=== PATIENT | female | born 1950 | race Caucasian/White ===

== ENCOUNTER 2017-02-22 18:37 | Emergency (ER) | payer MEDICARE, OTHER ==
[2017-02-22] MEDS ORDERED: cloNIDine 0.1 MG Tab PO ONE (19:13)
--- NOTE | 2017-02-22 19:17 | EDM.PDOC ---
ED HPI GENERAL MEDICAL PROBLEM - General Chief Complaint: Diabetic Complaint Stated Complaint: [facility] Time Seen by Provider: 02/22/17 19:14 Source of Information: Reports: Patient, Family History Limitations: Reports: No Limitations - History of Present Illness INITIAL COMMENTS - FREE TEXT/NARRATIVE: pt states remembering sitting in a chair then found herself sitting on the floor. spouse states pt is DM and found her sitting on floor and took BS found at 35 unable to get her up called EMS, EMS arrived gave glucagon en route improved. pt denies head/neck pain denies pain anywhere, no CP/SOB. Middle Parietal Head Pain Score (Numeric/FACES): 4 - Related Data Allergies Allergy/AdvReac Type Severity Reaction Status Date / Time fentanyl Allergy Hallucinati Verified 02/22/17 19:11 ons Sulfa (Sulfonamide Allergy Cannot Verified 02/22/17 19:11 Antibiotics) Remember Home Meds: Home Meds Alendronate Sodium [Alendronate] 02/22/17 [History] Budesonide [Pulmicort] 02/22/17 [History] Cilostazol [Cilostazol] 02/22/17 [History] Glucagon,Human Recombinant [Glucagon Emergency Kit] 02/22/17 [History] Insulin Aspart [NovoLOG] 02/22/17 [History] Levothyroxine Sodium [Synthroid] 200 mcg PO ACBREAKFAST 02/22/17 [History] Lisinopril [Lisinopril] 5 mg PO 02/22/17 [History] Methotrexate Sodium [Methotrexate] 2.5 mg PO 02/22/17 [History] Metoprolol Succinate [Toprol Xl] 100 mg PO 02/22/17 [History] Montelukast Sodium 10 mg PO DAILY 02/22/17 [History] Nitroglycerin [Nitroglycerin] 0.4 mg PO PRN 02/22/17 [History] Omeprazole [Omeprazole] 20 mg PO DAILY 02/22/17 [History] Prasugrel HCl [Effient] 10 mg PO 02/22/17 [History] atorvaSTATin Calcium [Atorvastatin Calcium] 80 mg PO DAILY 02/22/17 [History] Past Medical History Cardiovascular History: Reports: Heart Failure Other Cardiovascular History: CHF; 2 stents Respiratory History: Reports: Asthma Endocrine/Metabolic History: Reports: Diabetes, Type I - Past Surgical History Other Endocrine Surgeries/Procedures: Continuous Insilin pump Social & Family History - Tobacco Use Smoking Status *Q: Never Smoker Second Hand Smoke Exposure: No - Caffeine Use Caffeine Use: Reports: Coffee, Soda, Tea - Recreational Drug Use Recreational Drug Use: No ED ROS GENERAL - Review of Systems Review Of Systems: ROS reveals no pertinent complaints other than HPI. ED EXAM GENERAL NO PERIP PULSE - Physical Exam Exam: See Below Exam Limited By: No Limitations General Appearance: Alert, WD/WN, No Apparent Distress Eye Exam: Bilateral Eye: PERRL (pupils ER @ 4mm) Ears: Hearing Grossly Normal Throat/Mouth: Normal Voice, No Airway Compromise Head: Atraumatic Neck: Non-Tender, Full Range of Motion Respiratory/Chest: No Respiratory Distress Cardiovascular: Regular Rate, Rhythm GI/Abdominal: Soft, Non-Tender Neurological: Alert, Oriented, Normal Cognition, No Motor/Sensory Deficits Psychiatric: Normal Affect, Normal Mood Skin Exam: Warm, Dry, Normal Color Lymphatic: No Adenopathy Course - Vital Signs Last Recorded V/S: Last Vital Signs Temp 35.9 C 02/22/17 18:40 Pulse 82 02/22/17 18:40 Resp 18 02/22/17 18:40 BP 177/80 H 02/22/17 19:17 Pulse Ox 100 02/22/17 18:40 - Orders/Labs/Meds Orders: Active Orders 24 hr Category Date Time Status EKG 12 Lead [EKG Documentation Completion] [RC] STAT Care 02/22/17 19:39 Active Labs: Laboratory Tests 02/22/17 02/22/17 02/22/17 Range/Units 18:43 18:54 18:54 WBC 13.2 H (5.0-10.0) 10^3/uL RBC 4.18 L (4.2-5.4) 10^6/uL Hgb 14.7 (12.0-16.0) g/dL Hct 43.1 (37.0-47.0) % MCV 103.1 H (80-100) fL MCH 35.2 H (27.0-34.0) pg MCHC 34.1 (33.0-35.0) g/dL Plt Count 321 (150-450) 10^3/uL Neut % (Auto) 83.3 H (42.2-75.2) % Lymph % (Auto) 10.3 L (20.5-50.1) % [place] % (Auto) 4.9 (2-8) % Eos % (Auto) 1.3 (1.0-3.0) % Baso % (Auto) 0.2 (0.0-1.0) % Sodium 138 (135-145) mmol/L Potassium 4.5 (3.6-5.0) mmol/L Chloride 98 L (101-111) mmol/L Carbon Dioxide 29.0 (21.0-31.0) mmol/L Anion Gap 15.5 BUN 21 H (7-18) mg/dL Creatinine 0.8 (0.6-1.3) mg/dL Est Cr Clr Drug Dosing 70.38 mL/min Estimated GFR (MDRD) > 60 BUN/Creatinine Ratio 26.25 Glucose 104 (74-105) mg/dL POC Glucose 66 L (70-105) mg/dl Calcium 9.0 (8.4-10.2) mg/dl Total Bilirubin 1.0 (0.2-1.0) mg/dL AST 26 (10-42) IU/L ALT 23 (10-60) IU/L Alkaline Phosphatase 94 (42-121) IU/L Troponin I 0.03 H* (0.00-0.02) ng/ml Total Protein 7.3 (6.7-8.2) g/dl Albumin 4.2 (3.2-5.5) g/dl Globulin 3.1 Albumin/Globulin Ratio 1.35 Meds: Medications Discontinued Medications Generic Name Dose Route Start Last Admin Trade Name Freq PRN Reason Stop Dose Admin Clonidine HCl 0.1 mg 02/22/17 19:13 02/22/17 19:17 Catapres PO 02/22/17 19:14 0.1 mg ONETIME ONE Administration - Re-Assessments/Exams Free Text/Narrative Re-Assessment/Exam: 02/22/17 20:46 results discussed with pt who states 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 case discussed with Dr Arun garcia who concurred GF transf. Case discussed with Dr Newton @ who kidly accepted pt. Departure - Departure Time of Disposition: 20:48 Disposition: DC/Tfer to Acute Hospital 02 Condition: Good Clinical Impression: Syncope and collapse, Hypoglycemia, Elevated troponin - Discharge Information Forms: Interfacility Transfer EMTALA - My Orders Last 24 Hours: My Active Orders 02/22/17 19:39 EKG 12 Lead [EKG Documentation Completion] [RC] STAT - Assessment/Plan Last 24 Hours: My Active Orders 02/22/17 19:39 EKG 12 Lead [EKG Documentation Completion] [RC] STAT
[2017-02-22 19:33] LABS: CHLORIDE,CL 98 mmol/L (101-111); SODIUM,NA 138 mmol/L (135-145)
--- NOTE | 2017-02-28 15:12 | EKG ---
02/22/2017 - [facility] GR[facility] R - FINDINGS: This 12-lead EKG shows baseline artifact throughout the precordial limb leads. The rhythm is normal sinus with a ventricular rate of 94. There is a right bundle-branch block. There is an LVH with an intraventricular conduction defect also. No previous EKG is available for comparison. [facility] /[id number]
== END 2017-02-22 21:20 ==
LOC: DL.ED 18:37
DX: R55 Syncope and collapse (principal); E16.2 Hypoglycemia, unspecified; R79.89 Other specified abnormal findings of blood chemistry; E10.9 Type 1 diabetes mellitus without complications; J45.909 Unspecified asthma, uncomplicated; I50.9 Heart failure, unspecified; Z95.5 Presence of coronary angioplasty implant and graft; Z79.899 Other long term (current) drug therapy; Z88.2 Allergy status to sulfonamides; Z88.8 Allergy status to other drugs, medicaments and biological substances
CPT/HCPCS: 36415; 70450; 80053; 82962; 84484; 85025; 93005; 99285; A9270; 93010